=== PATIENT | female | born 1965 | race Caucasian/White ===

== ENCOUNTER 2017-02-13 06:43 | Inpatient (IN) | payer OTHER ==
[2017-02-03 14:43] VITALS: BMI 23.0
[~2017-02-13] VITALS: Ht 160 cm; Wt 59.5 kg
[2017-02-13] VITALS (8 sets, daily range): BP systolic 128–177; BP diastolic 82–98; PULSE 67–92; TEMP 34.8–36.9; O2SAT 96–100; Ht 160 cm; Wt 59.5 kg
[~2017-02-13 06:43] MED LIST: ALBUAER INH; CALC-388 PO; CEFAZOLIN 2000 MG/60 ML D5W IV SCH; CLOP1TAB15 PO; CYCL10TA6 PO; CeleBREX 200 MG CAP PO SCH; LACTATED RINGER'S 1000ML 1,000 ML IV SCH; LACTATED RINGER'S 1000ML 500 ML IV SCH; LISI-461 PO; MELO15TA10 PO; MULT-610 PO; PREGABALIN 75 MG CAP PO SCH; UMEC1AER INH
[2017-02-13] MEDS ORDERED: FENTANYL CITRATE INJ 50 MCG/1 ML 2 ML VIAL ONE ×3 (07:55→09:51)
[2017-02-13] MEDS ORDERED: MIDAZOLAM HCL 1 MG/ML 2ML VIAL ONE (07:55)
[2017-02-13] MEDS ORDERED: LACTATED RINGER'S 1000ML 1,000 ML IV PRN (07:59)
[2017-02-13] MEDS ORDERED: ONDANSETRON INJ 2 MG/ML 2 ML VIAL IV PRN (08:00)
[2017-02-13] MEDS ORDERED: THROMBIN FOR SOLN 20000 UNIT KIT ONE (08:00)
[2017-02-13] MEDS ORDERED: THROMBIN 5000 UNITS KIT ONE (08:01)
[2017-02-13] MEDS ORDERED: BUPIVACAINE/EPINEPHRINE 0.5% MPF 1:200,000 30 ML VIAL ONE (08:01)
[2017-02-13] MEDS ORDERED: BACITRACIN 50000 UNIT VIAL ONE (08:01)
[2017-02-13] MEDS ORDERED: PROPOFOL IV EMULSION 10 MG/ML 100 ML VIAL IV ONE (08:04)
[2017-02-13] MEDS ORDERED: REMIFENTANIL 1 MG VIAL ONE ×2 (08:06→10:21)
--- NOTE | 2017-02-13 08:45 | History and Physical ---
History & Physical Date Feb 13, 2017. Chief Complaint neck and bilateral arm numbness History of Present Illness The patient is a 51 year old female with complaints of above who reports bilateral arm pain with associated hand numbness. 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 she reports deterioration of her symptoms with an early myelopathy including loss of dexterity and hand numbness. Her MRI shows adjacent level stenosis C4-5 and C6-7 with mild myelomalacia in spinal cord. she is on plavix for PVD and this is held. cleared by her pcp for surgery. She denies claude weakness of UEs Past Medical/Surgical History HTN COPD PVD hernia repair cervical fusin lumbar lami Additional History Hepatic Disease: No Endocrine Disorder: No Kidney Disease: No Hypertension: Yes Heart Disease: No Bleeding Tendencies: No Infectious Diseases: No Allergies Coded Allergies: NO KNOWN DRUG ALLERGIES (Verified Allergy, Mild, ., 02/13/17) Home Medications Scheduled Calcium Carbonate-Vitamin D (Calcium + D3 600-200 mg-Unit), 2 TAB PO QAM Clopidogrel (Plavix), 75 MG PO QAM Lisinopril (Zestril), 10 MG PO QAM Meloxicam (Mobic), 15 MG PO QAM Multiple Vitamins W/ Minerals (Centrum Adults), 1 TAB PO QAM Scheduled PRN Albuterol Sulfate (Proventil Hfa), 2 PUFF INH Q4H PRN for Shortness of Breath Cyclobenzaprine Hcl (Flexeril), 10 MG PO TID PRN for MUSCLE SPASM Umeclidinium-Vilanterol (Anoro Ellipta 62.5-25 Mcg/INH), 1 PUFF INH QAM PRN for Shortness of Breath Physical Examination Skin: warm/dry Eyes: normal inspection ENT: normal ENT inspection Head: normocephalic, atraumatic Neck: supple, trachea midline Respiratory/Chest: lungs clear, normal breath sounds, no respiratory distress Cardiovascular: regular rate, rhythm Back: normal inspection Extremities: normal inspection, normal range of motion Neurologic/Psych: no motor/sensory deficits, alert, normal reflexes, oriented x 3 Diagnosis C4-7 stenosis/facet djd/spondylosis, early cervical myelopathy Plan of Treatment C4-7 laminectomy and PSF, smoking cessation was counseled.
[2017-02-13] MEDS ORDERED: HEPARIN SOD (PORCINE) 1000 UNIT/ML 10 ML VIAL ONE (08:46)
[2017-02-13] MEDS ORDERED: HYDROmorphone INJ 2 MG/ML SYR/VIAL ONE ×2 (09:51→11:01)
[2017-02-13] MEDS ORDERED: DEXAMETHASONE SOD INJ 4 MG/ML VIAL ONE (10:56)
[2017-02-13] MEDS ORDERED: ONDANSETRON INJ 2 MG/ML 2 ML VIAL ONE ×2 (10:56→12:26)
[2017-02-13] MEDS ORDERED: PROPOFOL IV EMULSION 10 MG/ML 20 ML VIAL IV ONE (10:56)
[2017-02-13] MEDS ORDERED: LIDOCAINE HCL 2% 2 ML VIAL (20MG/ML) ONE (10:56)
[2017-02-13] MEDS ORDERED: ROCURONIUM BROMIDE 10 MG/ML 5 ML VIAL ONE (10:56)
[2017-02-13] MEDS ORDERED: FLOSEAL HEMOSTATIC MATRIX 5ML TOP ONE (10:58)
[2017-02-13] MEDS ORDERED: BETADINE OINTMENT (PACKETS) TOP ONE (10:58)
[2017-02-13] MEDS: FENTANYL CITRATE INJ 50 MCG/1 ML 2 ML VIAL IV PRN ×2 (11:28→11:34)
[2017-02-13] MEDS: HYDROmorphone INJ 1 MG/ML SYR IV PRN ×3 (11:39→23:03)
--- NOTE | 2017-02-13 11:43 | [facility] Post Operative Brief Note ---
Immediate Operative Summary Operative Date Feb 13, 2017. Pre-Operative Diagnosis C4-C7 stenosis, facet degenerative joint disease, spondylosis, and early cervical myelopathy Post-Operative Diagnosis same as preop Procedure(s) Performed C4-C7 Posterior Laminectomy and Instrumented Fusion, Application of Arteriocyte with iliac crest bone marrow aspirate and use of bone morphogenetic protein, with spinal cord monitoring Surgeon Dr. Andre Perez Gasket Supervisor Surgeon(s) Vipin Bustamante PA-C Estimated Blood Loss 50 ml Findings dict Specimens none
[2017-02-13] MEDS ORDERED: SOD PHOSPHATE/SOD BIPHOSPHATE ENEMA 132 ML BTL PR PRN (11:45)
[2017-02-13] MEDS ORDERED: ALBUTEROL HFA 8 GM INHALER INH PRN (11:45)
[2017-02-13] MEDS ORDERED: PROMETHAZINE HCL INJ 12.5 MG in SODIUM CHLORIDE 0.9% 50ML 50 ML IV PRN (11:45)
[2017-02-13] MEDS ORDERED: ACETAMINOPHEN IV 100 ML IV PRN (11:45)
[2017-02-13] MEDS ORDERED: CYCLOBENZAPRINE HCL 10 MG TAB PO PRN (11:45)
[2017-02-13] MEDS ORDERED: LORAZEPAM INJ 0.5 MG in SYRINGE 0.75 ML IV PRN (11:45)
[2017-02-13] MEDS ORDERED: NALOXONE HCL 0.4 MG/1 ML VIAL/CARP IV PRN (11:45)
[2017-02-13] MEDS ORDERED: FAMOTIDINE 20 MG TAB PO PRN (11:45)
[2017-02-13] MEDS ORDERED: hydrOXYzine HCL 25 MG TAB PO PRN (11:45)
[2017-02-13] MEDS ORDERED: DC PCA PRN (11:45)
[2017-02-13] MEDS ORDERED: METOCLOPRAMIDE HCL INJ 5 MG/ML 2 ML VIAL IV PRN (11:45)
[2017-02-13] MEDS ORDERED: BISACODYL 10 MG SUPP PR PRN (11:45)
[2017-02-13] MEDS ORDERED: MAGNESIUM HYDROXIDE SUSP 30 ML UDC PO PRN (11:45)
[2017-02-13] MEDS ORDERED: ALUMINUM/MAGNESIUM SUSP 30 ML UDC PO PRN (11:45)
--- NOTE | 2017-02-13 12:05 | Anesthesiology Progress Note ---
Anesthesia Post Op Note Date & Time Feb 13, 2017 at 12:04 Vital Signs Pain Intensity: 5 Vital Signs Past 12 Hours Date Time Temp Pulse Resp B/P Pulse Ox O2 Delivery O2 Flow Rate FiO2 02/13/17 12:00 36.2 80 12 132/95 99 Nasal Cannula 4 02/13/17 11:50 89 12 136/88 99 Nasal Cannula 4 02/13/17 11:40 87 12 128/91 98 Nasal Cannula 4 02/13/17 11:30 83 12 143/92 100 Mask 10 02/13/17 11:20 85 12 147/104 100 Mask 10 02/13/17 11:14 36.0 89 16 148/94 100 Mask 10 02/13/17 07:14 36.9 89 18 129/91 97 Room Air Notes Mental Status: alert / awake / arousable, participated in evaluation Pt Amnestic to Procedure: Yes Nausea / Vomiting: adequately controlled Pain: adequately controlled Airway Patency, RR, SpO2: stable & adequate BP & HR: stable & adequate Hydration State: stable & adequate Anesthetic Complications: no major complications apparent Pt doing well.
[2017-02-13] MEDS ORDERED: GLYCOPYRROLATE INJ 0.2 MG/ML VIAL ONE (12:26)
[2017-02-13] MEDS ORDERED: ESMOLOL HCL 10 MG/ML 10 ML VIAL ONE (12:26)
[2017-02-13] MEDS ORDERED: PHENYLEPHRINE 100MCG/ML 5ML SYR ONE (12:26)
[2017-02-13] MEDS ORDERED: NEOSTIGMINE METHYLSULFATE 1 MG/ML 10ML VIAL ONE (12:26)
[2017-02-13] MEDS: SODIUM CHLORIDE 0.9% 1000ML 1,000 ML IV SCH (13:53)
--- NOTE | 2017-02-13 14:03 | DIAGNOSTIC IMAGING REPORT ---
Cervical SPINE, INTRAOPERATIVE FLUOROSCOPY HISTORY: C4-C7 posterior fusion. FLUOROSCOPY TIME: 5 seconds. FINDINGS: Intraoperative fluoroscopy was provided for the cervical spine. 2 fluoroscopic spot images were obtained. Posterior decompression fusion from C4 through C7 with pedicle screws and rods. The hardware appears intact. IMPRESSION: Fluoroscopy provided for a C4-C7 posterior decompression and fusion. Electronically signed by: Pedro Saleh M.D. 02/13/2017 2:01 PM Dictated Date/Time: 02/13/2017 2:00 PM
[2017-02-13] MEDS: HYDROmorphone INJ 0.5 MG/0.5 ML SYR IV PRN ×2 (14:21→19:41)
[2017-02-13] MEDS ORDERED: INFLUENZA ADMINISTRATION CHARGE ONE (15:30)
[2017-02-13] MEDS ORDERED: INFLUENZA VIRUS QUAD VACCINE 0.5 ML SYR IM. ONE (15:30)
[2017-02-13] MEDS: DEXAMETHASONE INJ 6 MG in SYRINGE 0 ML IV SCH ×2 (16:01→23:07)
[2017-02-13] MEDS: CEFAZOLIN IV 1,000 MG in DEXTROSE 5% 50ML 50 ML IV SCH ×2 (16:01→23:07)
[2017-02-13] MEDS: OXYCODONE HCL IR 5 MG TAB (IMMEDIATE RELEASE) PO PRN ×2 (16:12→20:54)
[2017-02-13] MEDS: LORAZEPAM 0.5 MG TAB PO PRN (18:47)
[2017-02-13] MEDS: DOCUSATE SODIUM/SENNA 50/8.6MG TAB PO SCH (20:53)
[2017-02-14] VITALS (9 sets, daily range): BP systolic 132–166; BP diastolic 65–110; PULSE 76–101; TEMP 36.8–37; O2SAT 95–100
[2017-02-14] MEDS: SODIUM CHLORIDE 0.9% 1000ML 1,000 ML IV SCH (00:05)
[2017-02-14] MEDS: HYDROmorphone INJ 1 MG/ML SYR IV PRN ×3 (03:21→19:30)
[2017-02-14] MEDS ORDERED: OXYCODONE HCL IR 5 MG TAB (IMMEDIATE RELEASE) PO PRN (06:00)
[2017-02-14] MEDS: OXYCODONE HCL IR 5 MG TAB (IMMEDIATE RELEASE) PO PRN ×4 (06:38→23:44)
[2017-02-14] MEDS ORDERED: NURSING VERBAL MED ORDER ONE ×3 (06:45→21:00)
[2017-02-14 06:49] LABS: COMPLETE YES; HEMATOCRIT 37.9 % (37-47); IG% 0.3 %; LYMPH % 5.2 %; LYMPH ABS # 0.62 K/uL (1.2-3.4); MEAN CORPUSCULAR HEMOGLOBIN 35.1 pg (25-34); MEAN CORPUSCULAR HGB CONC 35.1 g/dl (32-36); MEAN PLATELET VOLUME 8.6 fL (7.4-10.4); MONO % 6.7 %; NEUT % 87.8 %; PLATELET COUNT 201 K/uL (130-400); RED BLOOD COUNT 3.79 M/uL (4.2-5.4); WHITE BLOOD COUNT 11.86 K/uL (4.8-10.8)
[2017-02-14 07:22] LABS: BUN/CREATININE RATIO 7.8 (10-20); CREATININE 0.73 mg/dl (0.60-1.20); POTASSIUM 4.4 mmol/L (3.5-5.1)
[2017-02-14] MEDS: DEXAMETHASONE INJ 6 MG in SYRINGE 0 ML IV SCH (07:37)
--- NOTE | 2017-02-14 08:31 | Anesthesiology Progress Note ---
Anesthesia Post Op Note Date & Time Feb 14, 2017 at 08:30 Vital Signs Pain Intensity: 8.0 Vital Signs Past 12 Hours Date Time Temp Pulse Resp B/P Pulse Ox O2 Delivery O2 Flow Rate FiO2 02/14/17 07:17 36.9 88 19 166/110 95 Room Air 02/14/17 04:28 81 133/80 02/14/17 03:48 36.8 76 16 166/93 98 Room Air 02/14/17 00:11 148/88 02/13/17 22:52 36.5 92 16 177/94 96 Room Air Notes Mental Status: alert / awake / arousable, participated in evaluation Pt Amnestic to Procedure: Yes Nausea / Vomiting: adequately controlled Pain: adequately controlled Airway Patency, RR, SpO2: stable & adequate BP & HR: stable & adequate Hydration State: stable & adequate Anesthetic Complications: no major complications apparent
[2017-02-14] MEDS: LISINOPRIL 10 MG TAB PO SCH (08:57)
[2017-02-14] MEDS: UMECLIDINIUM-VILANTEROL (ANORO) INH SCH (08:58)
--- NOTE | 2017-02-14 08:59 | Orthopedic Progress Note ---
Orthopedic Progress Note Date of Service Feb 14, 2017. Subjective Post OP Day: 1 Reports: feeling well, pain controlled w PO medications, Denies: SOB, calf pain , chest pain, complaints, light headedness, nausea / vomiting, using PLANT INSPECTOR Objective N/V intact, dressing C/D/I, A&O x3, hemovac drainage Date Time Temp Pulse Resp B/P Pulse Ox O2 Delivery O2 Flow Rate FiO2 02/14/17 07:50 Room Air 02/14/17 07:17 36.9 88 19 166/110 95 Room Air 02/14/17 04:28 81 133/80 02/14/17 03:48 36.8 76 16 166/93 98 Room Air 02/14/17 00:11 148/88 02/13/17 22:52 36.5 92 16 177/94 96 Room Air 02/13/17 19:47 36.5 74 18 162/97 100 Nasal Cannula 02/13/17 19:30 Nasal Cannula 3.0 02/13/17 15:35 34.8 68 18 145/92 100 Nasal Cannula 4.0 02/13/17 14:39 68 20 154/98 100 Nasal Cannula 4.0 02/13/17 13:38 36.4 82 16 142/83 100 Nasal Cannula 3.0 02/13/17 13:15 67 16 146/97 100 4.0 02/13/17 12:25 100 Nasal Cannula 3.0 02/13/17 12:25 36.4 86 16 128/82 100 Nasal Cannula 3.0 02/13/17 12:00 36.2 80 12 132/95 99 Nasal Cannula 4 02/13/17 11:50 89 12 136/88 99 Nasal Cannula 4 02/13/17 11:40 87 12 128/91 98 Nasal Cannula 4 02/13/17 11:30 83 12 143/92 100 Mask 10 02/13/17 11:20 85 12 147/104 100 Mask 10 02/13/17 11:14 36.0 89 16 148/94 100 Mask 10 Laboratory Results 24 Hours: Test 02/14/17 06:40 White Blood Count 11.86 K/uL Red Blood Count 3.79 M/uL Hemoglobin 13.3 g/dL Hematocrit 37.9 % Mean Corpuscular Volume 100.0 fL Mean Corpuscular Hemoglobin 35.1 pg Mean Corpuscular Hemoglobin Concent 35.1 g/dl Platelet Count 201 K/uL Mean Platelet Volume 8.6 fL Neutrophils (%) (Auto) 87.8 % Lymphocytes (%) (Auto) 5.2 % Monocytes (%) (Auto) 6.7 % Eosinophils (%) (Auto) 0.0 % Basophils (%) (Auto) 0.0 % Neutrophils # (Auto) 10.42 K/uL Lymphocytes # (Auto) 0.62 K/uL Monocytes # (Auto) 0.79 K/uL Eosinophils # (Auto) 0.00 K/uL Basophils # (Auto) 0.00 K/uL Assessment & Plan Assessment: stable, c collar, scds, d/c friday?
[2017-02-14] MEDS: NICOTINE 21 MG/24 HR TDSY TD SCH (10:56)
--- NOTE | 2017-02-14 15:48 | OPERATIVE REPORT ---
DATE OF OPERATION: 02/13/2017 PREOPERATIVE DIAGNOSES: 1. Cervical stenosis C4-C5 and C6-C7. 2. Previous C5-C6 ACDF. 3. Cervical myelopathy. POSTOPERATIVE DIAGNOSIS: Same. PROCEDURES: 1. C5 and C6 laminectomies with partial laminectomy of C4 and C7. 2. Segmental lateral mass screw instrumentation -- bilateral C4, C5, C6 and C7 with K2M lateral mass screws. 3. Posterior fusion C4 to C7 with morcellized local bone, bone putty, bone marrow aspirate and Infuse BMP on a collagen sponge. 4. Right iliac crest bone marrow aspiration with stem cell concentration and application of bone graft. SURGEON: Dr. Perez. FEATHEREDGE MACHINE OPERATOR: Vipin Butsamante PA-C. Please note he participated in all portions of the procedure and was critical for performance of the procedure, participated in positioning, prepping, draping, retraction, and wound closure. ANESTHESIA: General endotracheal anesthesia. COMPLICATIONS: None. ESTIMATED BLOOD LOSS: Per anesthesia record. OPERATION AND FINDINGS: PROCEDURE: After identification of patient and operative level, she was brought to the OR where she underwent induction of general anesthesia. She then had Vilchis tongs applied to the skull and she was positioned prone with spine positioning pads. Arms were tucked at the sides and well padded. I block draped the right iliac crest and then aspirated bone marrow with Jamshidi needle through a stab incision. This was concentrated with stem cell concentration system and used for bone graft home service director. I then sterilely prepped and draped the posterior cervical area, taped the shoulders distally and obtained spinal cord monitoring signals. I then performed a time out and infiltrated the skin with Marcaine, made a skin incision from spinous process of C3-C7. I exposed the posterior elements out to the lateral aspect of the lateral masses, placed Gelpi retractors and then confirmed level with fluoroscopy and a marker and marked the operative levels. I then did complete laminectomy essentially of C5 and C6, removed the inferior portion of the L4 lamina and superior portion of C7 lamina to accomplish a wide central decompression. I removed the medial facets as necessary to complete decompression. I then applied FloSeal for hemostasis. I then predrilled and tapped lateral masses from C4-C7 bilaterally and placed screws bilaterally from C4-C7. I left out one screw on C6 on the left. I then placed rods and endcaps for final tightening as well as crosslink and then decorticated the lateral masses from C4-C7 with a high speed bur and packed the lateral masses with bone graft from C4-C7 bilaterally. I did irrigate prior to bone grafting. I then confirmed hemostasis and closed in layered fashion over DIANE drain. All sponge and needle counts were correct at the end of the case. I attest to the content of the Intraoperative Record and any orders documented therein. Any exceptio ns are noted below.
[2017-02-14] MEDS: DOCUSATE SODIUM/SENNA 50/8.6MG TAB PO SCH (20:19)
[2017-02-15] MEDS: POLYETHYLENE (MIRALAX) 17 GM PACK PO SCH ×3 (05:31→18:00)
[2017-02-15] MEDS: OXYCODONE HCL IR 5 MG TAB (IMMEDIATE RELEASE) PO PRN ×4 (05:35→21:21)
[2017-02-15 07:16] VITALS: BP 132/78; PULSE 97; TEMP 36.9; O2SAT 95
[2017-02-15] MEDS: LORAZEPAM 0.5 MG TAB PO PRN (08:31)
[2017-02-15] MEDS: UMECLIDINIUM-VILANTEROL (ANORO) INH SCH (08:32)
[2017-02-15] MEDS: LISINOPRIL 10 MG TAB PO SCH (08:34)
[2017-02-15] MEDS: NICOTINE 21 MG/24 HR TDSY TD SCH (08:34)
[2017-02-15] MEDS: ONDANSETRON INJ 2 MG/ML 2 ML VIAL IV PRN (10:52)
--- NOTE | 2017-02-15 11:15 | Discharge Instructions ---
Discharge Instructions Date of Service Feb 15, 2017. Admission Reason for Admission: Cervical Spinal Stenosis Discharge Discharge Diagnosis / Problem: Cervical radiculopathy Discharge Goals Goal(s): Improve function Activity Recommendations Activity Limitations: as noted below Lifting Limitations: no more than 5 pounds Exercise/Sports Limitations: until after follow-up appointment Shower/Bathe: may shower/bathe in 3 days Driving or Machine Use: . Instructions / Follow-Up Instructions / Follow-Up ACTIVITY RECOMMENDATIONS: SELF CARE INSTRUCTIONS AFTER CERVICAL FUSIONS 1. No smoking. Smoking drastically decreases the chance of a solid fusion. 2. No bending, lifting more than 5 pounds, or twisting (roll like a log when turning in bed). 3. You may shower 3 days after surgery. Thoroughly dry wound. Do not soak in the tub. 4. Cervical collar: Must be worn at all times including sleeping. You may remove the brace only to bath, eat and if you are sitting in a recliner. 5. Please walk as much as you can for exercise. Gradually increase the distance that you walk as your endurance increases. SPECIAL CARE INSTRUCTIONS: VERY IMPORTANT TO READ AND REVIEW A. Do not take any anti-inflammatory medications (i.e. Indocin, Advil, Aspirin, Naprosyn, Aleve, Motrin, etc.) as these may inhibit the chance of a solid fusion. Tylenol is okay to take. B. Your surgical incision has been closed with a cosmetic suture under the skin that will dissolve in about 6 weeks. In 14 days, you can use a pair of clean scissors and cut the suture that is left outside of the skin at the ends of your incision. C. Complications are uncommon, but please contact us if you have any signs or symptoms of: 1. wound infection (fever higher than 102.5 degrees F, redness, separation of wound, drainage, or increasing pain from the incision) 2. blood clots in legs (pain, swelling, redness and warmth in legs) 3. urinary tract infection (fever higher than 102.5 degrees, burning upon urination or increased frequency of urination) 4. nerve problems (inability to walk on your toes or heels, numbness, loss of bowel or bladder control) 5. any other symptoms that concern you. D. Please call the office at if you have any concerns or questions about your operation or recovery. MANAGING PAIN AFTER SPINAL SURGERY 1. Narcotic medication is intended for short-term use and will be provided for surgical pain. Surgical pain usually lasts for a period of 4-6 weeks. Narcotic medication includes Percocet, Vicodin, Darvocet, Tylenol #3 or Lortab. 2. Longer-term pain is more appropriately treated with non-narcotic medication such as Tylenol ES. 3. Muscle spasm is not appropriately treated with narcotics. Muscle relaxers such as Soma, Flexeril or Skelaxin can be used along with Tylenol ES. 4. Remember that we all live with some "aches and pains". This is not unusual or uncommon after an injury or as we get older. 5. We will provide appropriate medication within the normal guidelines of their prescribed use. We will also be very cautious and aware of potential abuse and extended duration of patients' medication needs. 6. Please allow 2-3 days to process refills. Prescriptions will not be mailed but must be picked up at the office. FOLLOW UP VISIT: Keep your scheduled follow-up appointment. Any questions, please call the office at . Current Hospital Diet Patient's current hospital diet: Regular Diet Discharge Diet Recommended Diet: Regular Diet Procedures Procedures Performed: C4-C7 Posterior Laminectomy and Instrumented Fusion, Application of Arteriocyte with iliac crest bone marrow aspirate and use of bone morphogenetic protein, with spinal cord monitoring Pending Studies Studies pending at discharge: no Medical Emergencies . Who to Call and When: Medical Emergencies: If at any time you feel your situation is an emergency, please call 911 immediately. . Non-Emergent Contact Non-Emergency issues call your: Surgeon Call Non-Emergent contact if: you have a fever, your pain is worsening, wound has increased drainage . "Provider Documentation" section prepared by Rodríguez Lincoln. VTE Core Measure Inpt VTE Proph given/why not?: [facility] Drug Monitoring Program Search Results: patient reviewed within database
[2017-02-15] MEDS: KETOROLAC TROMETHAMINE 15 MG/ML VIAL IV PRN (12:39)
[2017-02-15 15:11] VITALS: BP 116/77; PULSE 86; TEMP 36.7; O2SAT 96
[2017-02-15 16:15] VITALS: O2SAT 96
[2017-02-15] MEDS: HYDROmorphone INJ 1 MG/ML SYR IV PRN (18:18)
[2017-02-15 19:47] VITALS: O2SAT 96
[2017-02-15] MEDS: DOCUSATE SODIUM/SENNA 50/8.6MG TAB PO SCH (21:00)
[2017-02-15 22:56] VITALS: BP 122/84; PULSE 77; TEMP 36.9; O2SAT 93
[2017-02-16] MEDS: KETOROLAC TROMETHAMINE 15 MG/ML VIAL IV PRN ×3 (00:08→13:26)
[2017-02-16] MEDS: POLYETHYLENE (MIRALAX) 17 GM PACK PO SCH ×3 (06:00→11:33)
[2017-02-16] MEDS ORDERED: NURSING VERBAL MED ORDER ONE (06:15)
[2017-02-16] MEDS: OXYCODONE HCL IR 5 MG TAB (IMMEDIATE RELEASE) PO PRN ×3 (06:18→17:00)
[2017-02-16 07:20] VITALS: BP 108/74; PULSE 75; TEMP 36.6; O2SAT 92
[2017-02-16] MEDS: NICOTINE 21 MG/24 HR TDSY TD SCH (08:41)
[2017-02-16] MEDS: LISINOPRIL 10 MG TAB PO SCH (08:42)
[2017-02-16] MEDS: UMECLIDINIUM-VILANTEROL (ANORO) INH SCH (08:42)
[2017-02-16] MEDS: ONDANSETRON INJ 2 MG/ML 2 ML VIAL IV PRN (13:26)
[2017-02-16 14:35] VITALS: BP 129/80; PULSE 99
[2017-02-16] MEDS ORDERED: RXC5 PO (15:21)
--- NOTE | 2017-02-16 15:22 | Orthopedic Progress Note ---
Orthopedic Progress Note Date of Service Feb 16, 2017. Subjective Post OP Day: 3 Reports: feeling well, pain controlled w PO medications, Denies: SOB, calf pain , chest pain, complaints, light headedness, nausea / vomiting, using SPIKE DRIVER Objective calves soft nontender, N/V intact, dressing C/D/I, A&O x3, hemovac drainage Date Time Temp Pulse Resp B/P Pulse Ox O2 Delivery O2 Flow Rate FiO2 02/16/17 14:35 99 02/16/17 13:39 Room Air 02/16/17 07:20 36.6 75 17 108/74 92 Room Air 02/16/17 00:00 Room Air 02/15/17 22:56 36.9 77 16 122/84 93 Room Air 02/15/17 19:47 96 Room Air 02/15/17 16:15 96 Room Air Assessment & Plan Assessment: stable, c collar, scds, d/c drain, d/c home Discharge Planning Discharge Planning: home Pain Management: Oxy IR DVT Prophylaxis: SCDs
[2017-02-16 15:47] VITALS: BP 105/71; PULSE 96; TEMP 37.2; O2SAT 97
[2017-02-16 16:19] VITALS: BP 105/71; PULSE 96; TEMP 37.2; O2SAT 97
[2017-02-16] MEDS: LORAZEPAM 0.5 MG TAB PO PRN (17:00)
--- NOTE | 2017-02-27 15:10 | Discharge Summary ---
Orthopedic Discharge Summary Admission Date/Reason Feb 13, 2017 at 08:30 Cervical Spinal Stenosis. Discharge Date/Disposition Feb 16, 2017 Home Diagnosis Principal Diagnosis: same Procedure(s) Performed C4-7 laminectomy/PSF Medication Reconciliation New Medications: Oxycodone HCl (Oxycodone HCl) 5 Mg Tab 5-10 MG PO Q4H PRN for Moderate - severe pain, #90 TAB Continued Medications: Albuterol Sulfate (Proventil Hfa) 108 Mcg/Act Aer 2 PUFF INH Q4H PRN for Shortness of Breath Calcium Carbonate-Vitamin D (Calcium + D3 600-200 mg-Unit) 1 Tab Tab 2 TAB PO QAM Clopidogrel (Plavix) 75 Mg Tab 75 MG PO QAM, TAB TO STOP 02/05/17 Cyclobenzaprine Hcl (Flexeril) 10 Mg Tab 10 MG PO TID PRN for MUSCLE SPASM Lisinopril (Zestril) 10 Mg Tab 10 MG PO QAM, TAB Multiple Vitamins W/ Minerals (Centrum Adults) 1 Tab Tab 1 TAB PO QAM Umeclidinium-Vilanterol (Anoro Ellipta 62.5-25 Mcg/INH) 1 Aer Aer 1 PUFF INH QAM PRN for Shortness of Breath Discontinued Medications: Meloxicam (Mobic) 15 Mg Tab 15 MG PO QAM, TAB TO STOP 02/05/17 Admission Physical Exam As per Admitting History & Physical. Hospital Course She underwent elective cervical surgery for myelopathy due to cervical stenosis which was uneventful. The patient was transferred to floor in stable condition , mobilized with PT, remained hemodynamically stable, had pain controlled on oral meds, and was discharged in stable condition. Discharge Instructions Please refer to the electronic Patient Visit Report (Discharge Instructions) for additional information.
== END 2017-02-16 18:03 | disposition home or self-care (01) | DRG 472 ==
LOC: ENRESERVDT → ENRESERVTM → C.ACU 06:43 → C.3E 08:30
PROVIDERS: ADMIT Orthopaedic Surgery Orthopaedic Surgery of the Spine; ATTEND Orthopaedic Surgery Orthopaedic Surgery of the Spine
PROC: 0RG20A1 (ICD-10-PCS; principal; 2017-02-13 08:15)
DX: M48.02 Spinal stenosis, cervical region (principal); M50.00 Cervical disc disorder with myelopathy, unspecified cervical region; J44.9 Chronic obstructive pulmonary disease, unspecified; I10 Essential (primary) hypertension